=== PATIENT | male | born 1960 | race Caucasian/White ===

== ENCOUNTER 2023-02-06 12:22 | Emergency (ER) | payer OTHER ==
[2023-02-06] MEDS ORDERED: Sodium Chloride 0.9% 10 ML Syringe FLUSH PRN (14:27)
[2023-02-06] MEDS ORDERED: LORazepam 1 MG Tab PO ONE (14:33)
[2023-02-06] MEDS ORDERED: LORazepam 2 MG/ML SDV IVPUSH ONE (15:06)
[2023-02-06] MEDS ORDERED: Gadoteridol 279.3 MG/ML 20 ML SDV IV SCH (16:15)
[2023-02-06 17:29] VITALS: BP 128/78; PULSE 94
== END 2023-02-06 17:50 | disposition home or self-care (01) ==
LOC: JP.ED 12:22
DX: M54.17 Radiculopathy, lumbosacral region (principal); M51.36 Other intervertebral disc degeneration, lumbar region; Z88.5 Allergy status to narcotic agent; Z88.8 Allergy status to other drugs, medicaments and biological substances; Z79.82 Long term (current) use of aspirin
CPT/HCPCS: 72158; 96374; 99283; A9270; A9579; J2060; J3490; 99284